=== PATIENT | male | born 1960 | race African-American/Black ===

== ENCOUNTER 2018-06-05 09:02 | Emergency (ER) | payer OTHER ==
[2018-06-05 09:10] VITALS: BP 115/74
--- NOTE | 2018-06-05 09:52 | UC ---
Truncal Trauma HPI - HPI Summary HPI Summary: 58 yo male presents with left rib pain for 5 days. He tells me that 5 days ago he was wrestling and playing around with his 15 yo son and the son accidentally kneed him in the left ribs. Since that time pt has had discomfort in this area that is worst when trying to get comfortable at bedtime. He has not taken any tylenol or ibuprofen for this discomfort. Denies SOB, chest pain, cough, n/v. - History Of Current Complaint Chief Complaint: UCRespiratory Stated Complaint: RIB PAIN Time Seen by Provider: 06/05/18 09:52 Hx Obtained From: Patient Severity Currently: Moderate Pain Intensity: 6 Pain Scale Used: 0-10 Numeric - Allergies/Home Medications Allergies/Adverse Reactions: Allergies Allergy/AdvReac Type Severity Reaction Status Date / Time No Known Allergies Allergy Verified 06/05/18 09:10 Home Medications: Home Medications Ibuprofen TAB* [Motrin TAB* 800 MG] 400 mg PO Q8H PRN 06/05/18 [History Confirmed 06/05/18] PMH/Surg Hx/FS Hx/Imm Hx - Additional Past Medical History Additional PMH: None - Surgical History Surgical History: Yes Surgery Procedure, Year, and Place: left hand carpel tunnel and bone fragment repair - Family History Known Family History: Positive: Other - Positive FMH for arthralgia - Social History Lives: With Family Alcohol Use: None Substance Use Type: None Smoking Status (MU): Former Smoker Type: Cigarettes Amount Used/How Often: 1 pack per 36 hrs When Did the Patient Quit Smoking/Using Tobacco: 3 yrs ago Review of Systems Constitutional: Negative Skin: Negative Respiratory: Negative Cardiovascular: Negative Gastrointestinal: Negative Neurovascular: Negative Musculoskeletal: Other: - Left anterior rib pain Neurological: Negative Psychological: Negative All Other Systems Reviewed And Are Negative: Yes Physical Exam - Summary Physical Exam Summary: GENERAL: NAD. WDWN. No pain distress. SKIN: No rashes, sores, lesions, or open wounds. HEENT: Head: AT/NC Eyes: EOM intact. Conjunctiva clear without inflammation or discharge. Ears: Hearing grossly normal. TMs intact, no bulging, erythema, or edema. Nose: Nasal mucosa pink and moist. NTTP maxillary and frontal sinus. Throat: Posterior oropharynx without exudates, erythema, or tonsillar enlargement. Uvula midline. NECK: Supple. Nontender. No lymphadenopathy. CHEST: CTAB. No r/r/w. No accessory muscle use. Breathing comfortably and in no distress. CV: RRR. Without m/r/g. Pulses intact. Cap refill <2seconds MSK: Moderate TTP at ~9th anterior left rib. FROM b/l UEs with mild pain left anterior ribs. NEURO: Alert. PSYCH: Age appropriate behavior. Triage Information Reviewed: Yes Vital Signs: Initial Vital Signs Temp 98.3 F 06/05/18 09:04 Pulse 79 06/05/18 09:04 Resp 16 06/05/18 09:04 BP 115/74 06/05/18 09:04 Pulse Ox 94 06/05/18 09:04 Vital Signs Reviewed: Yes Truncal Trauma Course/Dx - Course Course Of Treatment: XR: IMPRESSION: 1. NO EVIDENCE FOR FRACTURE. 2. LOW LUNG VOLUMES AND SMALL INFILTRATES AT BOTH LUNG BASES MOST CONSISTENT WITH. ATELECTASIS. Discussed results with pt. Will rx for naproxen and have him f/u with his PCP if his symptoms do not improve. - Differential Dx/Diagnosis Provider Diagnoses: Left rib pain Discharge - Sign-Out/Discharge Documenting (check all that apply): Patient Departure All imaging exams completed and their final reports reviewed: Yes - Discharge Plan Condition: Stable Disposition: HOME Prescriptions: Naproxen [Naproxen 250 mg tab] 250 mg PO TID PRN #30 tablet PRN Reason: Pain Patient Education Materials: Rib Contusion (ED) Referrals: Jimmy Joseph MD [Primary Care Provider] - Additional Instructions: If you develop a fever, shortness of breath, chest pain, new or worsening symptoms - please call your PCP or go to the ED. - Billing Disposition and Condition Condition: STABLE Disposition: Home
--- NOTE | 2018-06-05 10:43 | RAD ---
INDICATION: Left rib injury. COMPARISON: Comparison is made with prior chest x-ray study from February 06, 2014. TECHNIQUE: 4 views of the left ribs and dual-energy PA views of the chest were obtained. FINDINGS: No fracture or significant focal osseous abnormality is seen. The lungs are underinflated. There are small bibasilar infiltrates most consistent with atelectasis. The lungs are otherwise clear. No pleural effusion or pneumothorax is seen. IMPRESSION: 1. NO EVIDENCE FOR FRACTURE. 2. LOW LUNG VOLUMES AND SMALL INFILTRATES AT BOTH LUNG BASES MOST CONSISTENT WITH ATELECTASIS.
== END 2018-06-05 11:00 | disposition home or self-care (01) ==
LOC: UCEAST 09:02
DX: R07.81 Pleurodynia (principal); Z87.891 Personal history of nicotine dependence
CPT/HCPCS: 99212; G0463